=== PATIENT | female | born 1985 | race Caucasian/White ===

== ENCOUNTER 2018-05-18 21:03 | Emergency (ER) | payer OTHER, MEDICAID, SELFPAY ==
[2018-05-18 21:14] VITALS: BP 107/63; PULSE 58; RESP 20; TEMP 36.2; O2SAT 98; BMI 41.1
--- NOTE | 2018-05-18 21:29 | DI.US.S_ITS ---
PROCEDURE: US PELVIC COMPLETE INDICATIONS: POSITIVE HOME TEST; PAIN, BLEEDING TECHNIQUE: Real-time scanning was performed of the pelvic organs, with image documentation. Additional endovaginal scanning was necessary due to incomplete visualization of the adnexal and endometrial structures by transabdominal scanning. COMPARISON: None. FINDINGS: Transabdominal scanning: Limited scanning through the kidneys shows no hydronephrosis. No pathologic free abdominal or pelvic fluid. Endovaginal scanning: Uterus: Uterus is slightly enlarged in size at 12.6 x 6.3 x 7.3 cm. there is a large approximately 8.2 x 2.6 x 2.8 cm intra-endometrial fluid collection with volume approximately 30 cc. No double decidual sac sign to 5. No pole. No yolk sac identified. Ovaries: Visualized and cannot be evaluated. IMPRESSION: 1. No intrauterine identified. 2. Large intrauterine/intra-endometrial fluid collection which could represent anembryonic or missed . Recommend gynecologic consultation, correlation with serial beta-hCG and short term followup ultrasound. Dictated by: Tanvi Joyce MD, PhD on 05/19/2018 at 8:31 Approved by: Tanvi Joyce MD, PhD on 05/19/2018 at 8:35
--- NOTE | 2018-05-18 21:31 | ED_ITS ---
HPI - <DANIELLE Velazquez - Last Filed: 05/18/18 22:05> General Chief complaint: OB/Uterine Contractions Stated complaint: 12wks thinks having miscarriage Time Seen by Provider: 05/18/18 21:25 Source: patient Mode of arrival: ambulatory Limitations: no limitations History of Present Illness HPI Narrative: 32-year-old female female with history of hypertension everyday smoker here for complaint of vaginal bleeding that started yesterday. She also reports having pelvic cramping during the same timeframe. She reports that she is approximately 12 weeks they are estimating as she has had a positive home test. First day of last menstrual. Was 27 January. She states she was started spotting yesterday she reports she has had increased amount of bleeding today with increased cramping pain. She has states that she has been passing a few clots. She denies any fevers. No urinary symptoms. She has not been evaluated by OBGYN as yet. She is 1 Related Data Home Medications Medication Instructions Recorded Confirmed lisinopril 10 mg PO DAILY 09/14/17 09/14/17 venlafaxine 30 mg PO BID 09/14/17 09/14/17 Allergies Allergy/AdvReac Type Severity Reaction Status Date / Time Penicillins Allergy Severe Anaphylaxis Verified 05/18/18 21:19 peanut Allergy Swelling Verified 05/18/18 21:19 of Lip/Tongue/Throat Review of Systems <DANIELLE Velazquez - Last Filed: 05/18/18 22:05> Constitutional Denies chills, Denies fever(s), Denies lethargy and Denies weakness Eyes Denies change in vision, Denies eye discharge, Denies irritation and Denies loss of vision ENT Ears, Nose, Mouth, and Throat: Denies change in voice, Denies neck pain and Denies sore throat Cardiovascular Denies chest pain, Denies irregular heart rhythm, Denies lightheadedness, Denies palpitations, Denies dyspnea, Denies dyspnea on exertion and Denies orthopnea Respiratory Denies cough, Denies dyspnea, Denies dyspnea on exertion and Denies wheezing Gastrointestinal Gastrointestinal: Denies abdominal pain, Denies change in bowel habits, Denies diarrhea, Denies nausea and Denies vomiting Genitourinary Denies hematuria, Denies flank pain, Denies urinary incontinence and Denies urinary urgency Musculoskeletal Denies neck pain Integumentary/Breasts Denies pruritus, Denies erythema, Denies rash and Denies wounds Neurologic Denies confusion, Denies loss of vision and Denies weakness Psychiatric Denies anxiety, Denies confusion, Denies depression, Denies homicidal ideation and Denies suicidal ideation Endocrine Denies palpitations Hematologic/Lymphatic Denies easy bruising Allergic/Immunologic Denies wheezing PMFSH - <Alexandro DANIELLE Saldaña - Last Filed: 05/18/18 22:05> Past Medical History Medical history: Reports hypertension Exam <Alexandro AyoubDANIELLE cosme - Last Filed: 05/18/18 22:05> Initial Vital Signs Initial Vital Signs: Vital Signs Temperature 97.2 F L 05/18/18 21:14 Pulse Rate 58 L 05/18/18 21:14 Respiratory Rate 20 05/18/18 21:14 Blood Pressure 107/63 05/18/18 21:14 Pulse Oximetry 98 05/18/18 21:14 Const General: cooperative and well developed Nutritional Appearance: well nourished Orientation: alert, awake, oriented x3 and not confused Eyes Conjunctivae: conjunctivae normal Sclera: sclerae normal Pupils: PERRL EOM: EOM intact bilaterally Resp Effort & Inspection: normal respiratory effort, able to speak in complete sentences, no respiratory distress and no use of accessory muscles Auscultation: clear to auscultation bilaterally, no rales, no rhonchi and no wheezes Cardio Rate: regular rate Rhythm: regular rhythm Heart Sounds: no click, no gallops, no murmurs and no rubs Pulses: normal peripheral pulses GI Inspection: non-distended Palpation: soft, no hepatosplenomegaly, No guarding, No pulsatile mass and tender Auscultation: normal bowel sounds Other: Pelvic tenderness General: No CVA tenderness Skin General: no rashes or lesions noted, No jaundice and No petechiae Neuro General: alert, oriented x3, gait normal and no focal motor deficits Speech: speech normal <Lincoln Gustafson DO - Last Filed: 05/18/18 23:05> Initial Vital Signs Initial Vital Signs: Vital Signs Temperature 97.2 F L 05/18/18 21:14 Pulse Rate 58 L 05/18/18 21:14 Respiratory Rate 20 05/18/18 21:14 Blood Pressure 107/63 05/18/18 21:14 Pulse Oximetry 98 05/18/18 21:14 Course <DANIELLE Velazquez - Last Filed: 05/18/18 22:05> Orders Ordered: ED Orders 05/18/18 21:29 US pelvic complete Stat 05/18/18 22:17 ABO RH Type Stat Complete Blood Count AUTO DIFF Stat Comprehensive Metabolic Panel Stat HCG Quantitative Stat Discontinued Medications Hydromorphone HCl (Dilaudid) 0.5 mg IV NOW ONE Stop: 05/18/18 21:41 Last Admin: 05/18/18 22:21 Dose: 0.5 mg Sodium Chloride (Normal Saline 0.9%) 1,000 mls @ 1,000 mls/hr IV BOLUS ONE Stop: 05/18/18 22:42 Last Admin: 05/18/18 22:20 Dose: 1,000 mls/hr Ondansetron HCl (Zofran) 4 mg IV NOW ONE Stop: 05/18/18 21:41 Last Admin: 05/18/18 22:21 Dose: 4 mg Vital Signs - 8 hr 05/18/18 21:14 Temperature 97.2 F L Pulse Rate 58 L Respiratory Rate 20 Blood Pressure 107/63 Pulse Oximetry 98 <Lincoln Gustafson DO - Last Filed: 05/18/18 23:05> Orders Ordered: ED Orders 05/18/18 21:29 US pelvic complete Stat 05/18/18 22:17 ABO RH Type Stat Complete Blood Count AUTO DIFF Stat Comprehensive Metabolic Panel Stat HCG Quantitative Stat Discontinued Medications Hydromorphone HCl (Dilaudid) 0.5 mg IV NOW ONE Stop: 05/18/18 21:41 Last Admin: 05/18/18 22:21 Dose: 0.5 mg Sodium Chloride (Normal Saline 0.9%) 1,000 mls @ 1,000 mls/hr IV BOLUS ONE Stop: 05/18/18 22:42 Last Admin: 05/18/18 22:20 Dose: 1,000 mls/hr Ondansetron HCl (Zofran) 4 mg IV NOW ONE Stop: 05/18/18 21:41 Last Admin: 05/18/18 22:21 Dose: 4 mg Vital Signs - 8 hr 05/18/18 21:14 Temperature 97.2 F L Pulse Rate 58 L Respiratory Rate 20 Blood Pressure 107/63 Pulse Oximetry 98 MDM - OB/Uterine Contractions <MATTHEW VelazquezP - Last Filed: 05/18/18 22:05> Lab Data Result diagrams: 05/18/18 22:17 05/18/18 22:17 Lab Results 05/18/18 05/18/18 05/18/18 Range/Units 22:17 22:17 22:17 WBC 17.9 H (4.5-11.0) X10^3/uL RBC 4.08 (4.0-5.2) X10^6/uL Hgb 12.0 (12.0-16.0) g/dL Hct 36.0 (36-46) % MCV 88.4 (80-100) fL MCH 29.4 (26-34) PG MCHC 33.2 (30-36) % RDW 14.2 (11.6-14.8) % Plt Count 360 (150-400) X10^3/uL Neut % (Auto) 75.2 H (50-75) % Lymph % (Auto) 16.8 L (25-40) % [place] % (Auto) 5.4 (3-14) % Eos % (Auto) 2.1 (2-4) % Baso % (Auto) 0.5 (0-2) % Neut # (Auto) 60147 H (0443-8192) /uL Sodium (137-145) mmol/L Potassium (3.4-5.1) mmol/L Chloride (98-107) mmol/L Carbon Dioxide (22-32) mmol/L BUN (7-17) mg/dL Creatinine (0.52-1.04) mg/dL Estimated GFR (>60) mL/min BUN/Creatinine Ratio (6-22) Glucose (70-100) mg/dL Calcium (8.4-10.2) mg/dL Total Bilirubin (0.2-1.3) mg/dL AST (14-36) IU/L ALT (9-52) IU/L Alkaline Phosphatase (38-126) U/L Total Protein (6.3-8.2) g/dL Albumin (3.5-5.0) g/dL Globulin (1.7-4.1) g/dL Albumin/Globulin Ratio (1.0-2.8) HCG, Quant 1231.0 mIU/mL Blood Type A Positive 05/18/18 Range/Units 22:17 WBC (4.5-11.0) X10^3/uL RBC (4.0-5.2) X10^6/uL Hgb (12.0-16.0) g/dL Hct (36-46) % MCV (80-100) fL MCH (26-34) PG MCHC (30-36) % RDW (11.6-14.8) % Plt Count (150-400) X10^3/uL Neut % (Auto) (50-75) % Lymph % (Auto) (25-40) % [place] % (Auto) (3-14) % Eos % (Auto) (2-4) % Baso % (Auto) (0-2) % Neut # (Auto) (1331-5191) /uL Sodium 139 (137-145) mmol/L Potassium 4.2 (3.4-5.1) mmol/L Chloride 107 (98-107) mmol/L Carbon Dioxide 23 (22-32) mmol/L BUN 16 (7-17) mg/dL Creatinine 0.70 (0.52-1.04) mg/dL Estimated GFR > 60.0 (>60) mL/min BUN/Creatinine Ratio 22.9 H (6-22) Glucose 124 H (70-100) mg/dL Calcium 9.3 (8.4-10.2) mg/dL Total Bilirubin 0.2 (0.2-1.3) mg/dL AST 20 (14-36) IU/L ALT 19 (9-52) IU/L Alkaline Phosphatase 68 (38-126) U/L Total Protein 7.5 (6.3-8.2) g/dL Albumin 4.0 (3.5-5.0) g/dL Globulin 3.5 (1.7-4.1) g/dL Albumin/Globulin Ratio 1.1 (1.0-2.8) HCG, Quant mIU/mL Blood Type MDM Narrative Medical decision making narrative: Laboratory results and ultrasound are pending. Due to change of shift care is turned over to Dr. Gustafson <Lincoln Gustafson DO - Last Filed: 05/18/18 23:05> Lab Data Attestation: I reviewed the patient's lab results. Lab Results 05/18/18 05/18/18 05/18/18 Range/Units 22:17 22:17 22:17 WBC 17.9 H (4.5-11.0) X10^3/uL RBC 4.08 (4.0-5.2) X10^6/uL Hgb 12.0 (12.0-16.0) g/dL Hct 36.0 (36-46) % MCV 88.4 (80-100) fL MCH 29.4 (26-34) PG MCHC 33.2 (30-36) % RDW 14.2 (11.6-14.8) % Plt Count 360 (150-400) X10^3/uL Neut % (Auto) 75.2 H (50-75) % Lymph % (Auto) 16.8 L (25-40) % [place] % (Auto) 5.4 (3-14) % Eos % (Auto) 2.1 (2-4) % Baso % (Auto) 0.5 (0-2) % Neut # (Auto) 67967 H (1134-1706) /uL Sodium (137-145) mmol/L Potassium (3.4-5.1) mmol/L Chloride (98-107) mmol/L Carbon Dioxide (22-32) mmol/L BUN (7-17) mg/dL Creatinine (0.52-1.04) mg/dL Estimated GFR (>60) mL/min BUN/Creatinine Ratio (6-22) Glucose (70-100) mg/dL Calcium (8.4-10.2) mg/dL Total Bilirubin (0.2-1.3) mg/dL AST (14-36) IU/L ALT (9-52) IU/L Alkaline Phosphatase (38-126) U/L Total Protein (6.3-8.2) g/dL Albumin (3.5-5.0) g/dL Globulin (1.7-4.1) g/dL Albumin/Globulin Ratio (1.0-2.8) HCG, Quant 1231.0 mIU/mL Blood Type A Positive 05/18/18 Range/Units 22:17 WBC (4.5-11.0) X10^3/uL RBC (4.0-5.2) X10^6/uL Hgb (12.0-16.0) g/dL Hct (36-46) % MCV (80-100) fL MCH (26-34) PG MCHC (30-36) % RDW (11.6-14.8) % Plt Count (150-400) X10^3/uL Neut % (Auto) (50-75) % Lymph % (Auto) (25-40) % [place] % (Auto) (3-14) % Eos % (Auto) (2-4) % Baso % (Auto) (0-2) % Neut # (Auto) (7364-8682) /uL Sodium 139 (137-145) mmol/L Potassium 4.2 (3.4-5.1) mmol/L Chloride 107 (98-107) mmol/L Carbon Dioxide 23 (22-32) mmol/L BUN 16 (7-17) mg/dL Creatinine 0.70 (0.52-1.04) mg/dL Estimated GFR > 60.0 (>60) mL/min BUN/Creatinine Ratio 22.9 H (6-22) Glucose 124 H (70-100) mg/dL Calcium 9.3 (8.4-10.2) mg/dL Total Bilirubin 0.2 (0.2-1.3) mg/dL AST 20 (14-36) IU/L ALT 19 (9-52) IU/L Alkaline Phosphatase 68 (38-126) U/L Total Protein 7.5 (6.3-8.2) g/dL Albumin 4.0 (3.5-5.0) g/dL Globulin 3.5 (1.7-4.1) g/dL Albumin/Globulin Ratio 1.1 (1.0-2.8) HCG, Quant mIU/mL Blood Type Imaging Data Pelvic ultrasound: Radiologist's impression: Large 8.2 x 2.6 x 2.8 cm intra endometrial fluid collection with volume with 30 cc. No double decidual sac sign. No yolk sac. No pole. MDM Narrative Medical decision making narrative: Blood type is Rh positive. Ultrasound shows no intrauterine . Patient states that she thinks that she is 12-14 weeks EGA by LMP. HCG quant is less than the discriminatory threshold. I do suspect given her history and physical exam that she is having a spontaneous miscarriage. Patient already has a follow-up scheduled on Saturday with an OB provider. She was informed that she needed to keep this appointment. She was instructed she needed to contact her OB to let them know that she could potentially be having a miscarriage. She was given return precautions. She expressed understanding and agreement with plan. Discharge Plan Departure Patient Disposition: Home Clinical Impression: , threatened Instructions: Dealing With Miscarriage, DI for Miscarriage Activity Restrictions/Additional Instructions: I recommend you contact her OB provider tomorrow to let them know that you could potentially be having a miscarriage. I do keep the appointment that you already have scheduled for Saturday. Return to the emergency department for any fevers, worsening pain, bleeding more than 1 pad an hour for 4 in 5 consecutive hours or any other new or concerning symptoms. Prescriptions: No Action lisinopril tablet 10 mg PO DAILY RF: 0 venlafaxine 30 mg PO BID RF: 0
[2018-05-18] MEDS: SODIUM CHLORIDE 0.9% 1,000 ML 1000 ML IV (22:20)
[2018-05-18] MEDS: HYDROMORPHONE 1 MG INJ 0.5 MG IV (22:21)
[2018-05-18] MEDS: ONDANSETRON 4 MG/2 ML INJ IV (22:21)
[2018-05-18 22:28] LABS: Add Manual Diff / Slide Review NO; Basophils Percent Auto 0.5 % (0-2); Eosinophils Percent Auto 2.1 % (2-4); Lymphocytes Percent Auto 16.8 % (25-40); Mean Corpuscular HGB Conc 33.2 % (30-36); Mean Corpuscular Hemoglobin 29.4 PG (26-34); Mean Corpuscular Volume 88.4 fL (80-100); Monocytes Percent Auto 5.4 % (3-14); Neutrophils Absolute Auto 13500 /uL (1500-7000); Neutrophils Percent Auto 75.2 % (50-75); Platelet Count 360 X10^3/uL (150-400); Red Blood Cell Count 4.08 X10^6/uL (4.0-5.2); Red Cell Distribution Width 14.2 % (11.6-14.8); White Blood Cell Count 17.9 X10^3/uL (4.5-11.0)
[2018-05-18 22:36] LABS: Alanine Aminotransferase 19 IU/L (9-52); Albumin Globulin Ratio 1.1 (1.0-2.8); Alkaline Phosphatase 68 U/L (38-126); Aspartate Aminotransferase 20 IU/L (14-36); BUN Creatinine Ratio 22.9 (6-22); Bilirubin Total 0.2 mg/dL (0.2-1.3); Blood Urea Nitrogen 16 mg/dL (7-17); Calcium 9.3 mg/dL (8.4-10.2); Carbon Dioxide 23 mmol/L (22-32); Chloride 107 mmol/L (98-107); Estimated Glomerular Filt Rate > 60.0 mL/min (>60); Globulin 3.5 g/dL (1.7-4.1); Glucose 124 mg/dL (70-100); HEMOLYSIS < 15 (0-50); Potassium 4.2 mmol/L (3.4-5.1); Sodium 139 mmol/L (137-145); Total Protein 7.5 g/dL (6.3-8.2)
[2018-05-18 23:08] VITALS: BP 134/71; PULSE 59; RESP 17; O2SAT 99
== END 2018-05-18 23:30 | disposition home or self-care (01) ==
PROVIDERS: Nurse Practitioner Family; Emergency Provider Emergency Medicine
DX: O20.0 Threatened abortion (principal)
CPT/HCPCS: 36591; 76830; 76856; 80053; 84702; 85025; 86900; 86901; 96361; 96374; 96375; 99283; 99284; J1170; J2405

== ENCOUNTER 2023-03-11 11:37 | Emergency (ER) | payer OTHER, SELFPAY ==
[2023-03-11 12:02] VITALS: BP 140/68; PULSE 79; RESP 17; TEMP 36.6; O2SAT 99; BMI 36.8
--- NOTE | 2023-03-11 12:06 | DI.RAD.S_ITS ---
PROCEDURE: XR FINGER LT MIN 2V INDICATIONS: injury TECHNIQUE: AP hand, 2 views of the small finger(s) acquired. COMPARISON: None. FINDINGS: Bones: No fractures or dislocations. No suspicious bony lesions. Soft tissues: No suspicious soft tissue calcifications. IMPRESSION: No evidence acute bony abnormality. Dictated by: Reji Glass M.D. on 03/11/2023 at 12:38 Approved by: Reji Glass M.D. on 03/11/2023 at 12:38
--- NOTE | 2023-03-11 12:06 | DI.RAD.S_ITS ---
PROCEDURE: XR HAND RT MIN 3V INDICATIONS: injury TECHNIQUE: 3 views of the hand(s) acquired. COMPARISON: None. FINDINGS: Bones: No fractures or dislocations. Carpal bones are normally aligned. No suspicious bony lesions. Soft tissues: No suspicious soft tissue calcifications. IMPRESSION: No evidence acute bony abnormality. Dictated by: Reji Glass M.D. on 03/11/2023 at 12:25 Approved by: Reji Glass M.D. on 03/11/2023 at 12:27
--- NOTE | 2023-03-11 14:04 | ED.UPPEXIN ---
HPI - Extremity Injury (Upper) <Cristhian Diego PA-C - Last Filed: 03/11/23 14:41> General Chief Complaint: Extremity Injury, Upper Stated Complaint: poss broken RT hand Time Seen by Provider: 03/11/23 12:55 Source: patient Mode of arrival: Ambulatory History of Present Illness HPI narrative: 57-year-old female with no reported past medical history presents to the ED with a bilateral hand injury sustained yesterday. Patient states she was working with a bale of hay, when it accidentally fell on her right hand and left pinky finger. Patient complains of pain in the right hand and in the left pinky finger. Patient denies numbness, tingling, weakness. Patient endorses full range of motion. Related Data Allergies Allergy/AdvReac Type Severity Reaction Status Date / Time Penicillins Allergy Severe Anaphylaxis Verified 03/11/23 12:04 peanut Allergy Swelling Verified 03/11/23 12:04 of Lip/Tongue/Throat Review of Systems <Cristhian Diego PA-C - Last Filed: 03/11/23 14:41> Constitutional Constitutional: Denies chills, Denies fatigue, Denies fever(s), Denies frequent falls, Denies lethargy and Denies weakness Eyes Eyes: Denies change in vision, Denies eye discharge, Denies irritation and Denies loss of vision ENT Ears, Nose, Mouth, and Throat: Denies change in voice, Denies dizziness, Denies neck pain, Denies sore throat and Denies throat swelling Cardiovascular Cardiovascular: Denies chest pain, Denies irregular heart rhythm, Denies lightheadedness, Denies palpitations, Denies dyspnea, Denies dyspnea on exertion and Denies orthopnea Respiratory Respiratory: Denies cough, Denies dyspnea, Denies dyspnea on exertion and Denies wheezing Gastrointestinal Gastrointestinal: Denies abdominal pain, Denies change in bowel habits, Denies diarrhea, Denies nausea and Denies vomiting Musculoskeletal Musculoskeletal: Denies neck pain and Denies numbness Comments: Right hand, left pinky pain Integumentary/Breasts Skin/Breast: Denies pruritus, Denies erythema, Denies rash and Denies wounds Neurologic Neurologic: Denies behavioral changes, Denies confusion, Denies dizziness, Denies frequent falls, Denies loss of vision, Denies numbness and Denies weakness Psychiatric Psychiatric: Denies anxiety, Denies behavioral changes, Denies confusion, Denies depression, Denies homicidal ideation and Denies suicidal ideation Endocrine Endocrine: Denies fatigue, Denies flushing and Denies palpitations Hematologic/Lymphatic Hematologic/Lymphatic: Denies easy bruising Allergic/Immunologic Allergic/Immunologic: Denies urticaria, Denies throat swelling and Denies wheezing Patient History <Cristhian Diego PA-C - Last Filed: 03/11/23 14:41> Social History Smoking Status: Current every day smoker Smoking Status: Current every day smoker alcohol intake frequency: other Substance Use Type: marijuana Exam <Cristhian Diego PA-C - Last Filed: 03/11/23 14:41> Narrative Exam Narrative: Const General:?cooperative, healthy appearing and comfortable HENWI Head:?normal to inspection Ears:?hearing grossly normal bilaterally Nose:?external nose normal Face and sinus:?normal facial exam and sinuses nontender Mouth:?oral mucosae normal Throat:?posterior oropharynx normal Eyes General:?appearance normal, both eyes and all related structures Neck Neck:?normal visual inspection and no lymphadenopathy noted Resp Effort & Inspection:?normal respiratory effort Auscultation:?clear to auscultation bilaterally Cardio Rate:?regular rate Rhythm:?regular rhythm Musculoskeletal There is some mild tenderness to palpation of the right hand distal to the wrist. There is some left pinky finger tenderness in the area of the DIP. No bruising, deformities on exam. There is full range of motion. Strength and sensation is intact. Patient is neurovascularly intact. Neuro General:?patient alert, patient awake and patient oriented x3 Initial Vital Signs Initial Vital Signs: Vital Signs Temperature 98 F 03/11/23 12:02 Pulse Rate 79 03/11/23 12:02 Respiratory Rate 17 03/11/23 12:02 Blood Pressure 140/68 03/11/23 12:02 Pulse Oximetry 99 03/11/23 12:02 Oxygen Delivery Method Room Air 03/11/23 12:02 <Mallory Field MD - Last Filed: 03/11/23 17:00> Initial Vital Signs Initial Vital Signs: Vital Signs Temperature 98 F 03/11/23 12:02 Pulse Rate 79 03/11/23 12:02 Respiratory Rate 17 03/11/23 12:02 Blood Pressure 140/68 03/11/23 12:02 Pulse Oximetry 99 03/11/23 12:02 Oxygen Delivery Method Room Air 03/11/23 12:02 Course <Cristhian Diego PA-C - Last Filed: 03/11/23 14:41> Orders Ordered: ED Orders 03/11/23 12:06 XR finger LT min 2V Stat XR hand RT min 3V Stat Vital Signs Vital signs: Vital Signs - 8 hr 03/11/23 12:02 Temperature 98 F Pulse Rate 79 Respiratory Rate 17 Blood Pressure 140/68 Pulse Oximetry 99 Oxygen Delivery Method Room Air <Mallory Field MD - Last Filed: 03/11/23 17:00> Orders Ordered: ED Orders 03/11/23 12:06 XR finger LT min 2V Stat XR hand RT min 3V Stat Vital Signs Vital signs: Vital Signs - 8 hr 03/11/23 12:02 Temperature 98 F Pulse Rate 79 Respiratory Rate 17 Blood Pressure 140/68 Pulse Oximetry 99 Oxygen Delivery Method Room Air MDM - Extremity Injury (Upper) <Cristhian Diego PA-C - Last Filed: 03/11/23 14:41> MDM Narrative Medical decision making narrative: 57-year-old female with no reported past medical history presents to the ED with a bilateral hand injury sustained yesterday. Concern for fracture/dislocation versus musculoskeletal sprain/strain versus other. Obtained x-rays which were negative for fractures or dislocations. Patient's symptoms likely due to musculoskeletal sprain/strain/contusion. Recommend supportive care with Tylenol, ibuprofen, heat packs. Recommend follow-up with PCP. ED return precautions discussed with patient. Patient verbalized understanding. Medical records reviewed: Yes Discharge Plan Departure Patient Disposition: Home Clinical Impression: Hand pain Qualifiers: Laterality: bilateral Qualified Code(s): M79.641 - Pain in right hand Instructions: DI for Hand Injury Activity Restrictions/Additional Instructions: You were evaluated in the ED today for a hand injury. Your x-rays of both hands did not show any fractures or dislocations. It appears that you have a musculoskeletal sprain/strain/contusion of both hands due to the injury. You may take Tylenol, ibuprofen for pain. You may apply heat packs for comfort. Please follow-up with your PCP as soon as possible. Return to the ED if you experience worsening symptoms, tingling, numbness, weakness. Referrals: Miscellaneous,Doctor, MD [Primary Care Provider] - Stand Alone Forms: Patient Portal/API ED Sign-out <Mallory Field MD - Last Filed: 03/11/23 17:00> Cosign ED Attending Junaid Attestation: I did not see this patient. I was available all times for consultation.
== END 2023-03-11 14:30 | disposition home or self-care (01) ==
PROVIDERS: Emergency Provider Student in an Organized Health Care Education/Training Program
DX: M79.641 Pain in right hand (principal); M79.645 Pain in left finger(s); W22.8XXA Striking against or struck by other objects, initial encounter
CPT/HCPCS: 73130; 73140; 99283

== ENCOUNTER 2025-03-16 18:38 | Emergency (ER) | payer OTHER, SELFPAY ==
[2025-03-16 18:46] VITALS: PULSE 71; O2SAT 95
[2025-03-16 18:47] VITALS: BP 145/85; PULSE 86; RESP 16; TEMP 36.5; O2SAT 96; BMI 37.8
--- NOTE | 2025-03-16 19:59 | ED_ITS ---
HPI - Wound/Laceration
--- NOTE | 2025-03-16 19:59 | ED.WOUNDLAC ---
HPI - Wound/Laceration General Chief Complaint: Wound/Laceration Stated Complaint: Lt hand laceration Time Seen by Provider: 03/16/25 18:43 Source: patient Mode of arrival: Ambulatory History of Present Illness HPI narrative: 39-year-old woman who comes in complaining of a laceration left hand between the ring in the middle finger in the webspace. She was trying to separate some frozen knee using a sharp knife. Bleeding has been controlled, she is neurovascularly intact. She is audibly wheezing and when questioned about it states that was her baseline. She has not seen a doctor in a number of years. She states that she does smoke heavily but is currently considering quitting. She notes that sometimes oozing a so bad she will actually wake herself up at night. She notes that she is occasionally feeling short of breath. No chest pains or palpitation. Related Data Previous Rx's ?Medication ?Instructions ?Recorded fluticasone 250 mcg-salmeterol 50 1 inh inhalation BID #60 ea 03/16/25 mcg/dose blistr powdr for inhalation (Advair Diskus) Allergies Allergy/AdvReac Type Severity Reaction Status Date / Time Penicillins Allergy Severe Anaphylaxis Verified 03/16/25 18:47 peanut Allergy Swelling Verified 03/16/25 18:47 of Lip/Tongue/Throat Review of Systems Review of Systems Narrative: Pertinent positive and negative findings as per HPI Patient History Smoking Status: Current every day smoker alcohol intake frequency: other Exam Initial Vital Signs Initial Vital Signs: Vital Signs Temperature 97.7 F 03/16/25 18:47 Pulse Rate 86 03/16/25 18:47 Respiratory Rate 16 03/16/25 18:47 Blood Pressure 145/85 H 03/16/25 18:47 Pulse Oximetry 96 03/16/25 18:47 Oxygen Delivery Method Room Air 03/16/25 18:47 General: Alert appropriate in no acute distress Respiratory: Able to speak in full sentences, no obvious respiratory distress, audible wheeze without retractions, scattered wheeze in all lung abbasi Skin: No obvious rashes, warm and dry Neurologic: Grossly intact no obvious asymmetries or abnormalities Psych: appropriate insight and affect, cooperative Extremity: Left hand with 1 cm laceration in the webspace between the ring and middle finger with no neurovascular concerns Procedures Laceration Repair Left hand: Time of procedure: 20:01 Site: hand Side (If applicable): left Size (cm): 1.5 Description: linear Local Anesthetic: lidocaine 1% Amount of anesthesia used (mL): 2 Pre-repair: wound explored and deep structures intact Skin layer closed with: nylon Skin layer suture size: 4-0 Number of sutures: 2 Technique: simple, interrupted Course Orders Ordered: Bacitracin (Bacitracin Oint 0.9 Gm Pckt) 1 applic TOP NOW ONE Stop: 03/16/25 20:00 Discontinued Medications Albuterol (Albuterol Hfa Prepack) 1 box [facility] [place] Stop: 03/16/25 19:59 Vital Signs Vital signs: Vital Signs - 8 hr 03/16/25 18:47 Temperature 97.7 F Pulse Rate 86 Respiratory Rate 16 Blood Pressure 145/85 H Pulse Oximetry 96 Oxygen Delivery Method Room Air MDM - Wound/Laceration MDM Narrative Medical decision making narrative: 39-year-old woman no primary care provider and no recent contact with medical establishment comes in with a laceration left hand webspace between ring and middle finger. Easily repaired with 2 simple interrupted sutures On her exam she has audible wheezing does not seem to recognize this as a problem. She has wheezes in all lung abbasi without retractions. She notes she smokes heavily. We discussed smoking cessation options and she is currently considering and we will continue to consider. We also discussed treatment for her wheezing. She is given 2 puffs of albuterol with spacer use and training here in the ER with resolution of the audible wheeze. She will be given an albuterol inhaler. Respiratory therapy she was or how to use the inhaler with spacer. We also discussed use an Advair Diskus. She is given information on how to find a primary care doctor here in [facility], and encouraged to do so. There was no indication for further admission, imaging or additional workup she is safe for discharge. Discharge Plan Departure Patient Disposition: Home Clinical Impression: Laceration, Wheeze, Cigarette smoker Instructions: DI for Asthma -- Adult, DI for Chronic Obstructive Pulmonary Disease, DI for Laceration Repair Activity Restrictions/Additional Instructions: Thank you for coming in today The cut between your fingers should heal nicely. Please make sure that it is kept clean and dry. This sutures we will need to come out on or about March 24. If it seems that it is becoming more red, more painful or develops any sort of discharge, this is not normal and you need to return for further evaluation We talked about your wheezing and smoking. I suspect that you likely have a combination of asthma and COPD. This is all made worse by your smoking. Anything that you can do to reduce the number of cigarettes to 0 is going to help. The wheezing and shortness of breath we will continue to get worse if you are not able to stop smoking I have given you albuterol inhaler with a spacer here in the emergency department. If you are feeling significantly short of breath or can hear herself wheezing I would recommend 2 puffs of the inhaler. You can do this up to 3 times a day * if you do not have a primary care physician, you can contact [facility] resource line at [phone]. They can help get you set up with a physician in our local community If you find that you are getting worse or develop any new symptoms, please feel free to return to the emergency department for further evaluation. Prescriptions: New fluticasone propion-salmeterol [Advair Diskus] 250-50 mcg/dose blister with device 1 inh inhalation BID Qty: 60 1RF Stand Alone Forms: Patient Portal/API
[2025-03-16] MEDS: BACITRACIN OINT 0.9 GM PCKT 1 APPLIC TOP (20:11)
[2025-03-16 20:36] VITALS: BP 136/79; PULSE 66; RESP 19; O2SAT 96
== END 2025-03-16 20:47 | disposition home or self-care (01) ==
PROVIDERS: Emergency Provider Emergency Medicine
DX: S61.412A Laceration without foreign body of left hand, initial encounter (principal); W26.0XXA Contact with knife, initial encounter; F17.210 Nicotine dependence, cigarettes, uncomplicated; R06.2 Wheezing
CPT/HCPCS: 12001; 99283